=== PATIENT | female | born 1950 | race Caucasian/White ===

== ENCOUNTER 2017-03-20 10:53 | Emergency (ER) | payer OTHER ==
[~2017-03-20] VITALS: Ht 162.6 cm; Wt 87.7 kg
[2017-03-20 11:23] VITALS: BP 151/72; PULSE 83; RESP 16; TEMP 99.3; O2SAT 95
[2017-03-20] MEDS ORDERED: LISI10TA3 PO (12:22)
[2017-03-20] MEDS ORDERED: ASPI-183 PO (12:22)
[2017-03-20] MEDS ORDERED: OMEP40CA2 (12:22)
[2017-03-20] MEDS ORDERED: BUPR100CR PO (12:22)
[2017-03-20] MEDS ORDERED: CO Q60CA (12:22)
[2017-03-20] MEDS ORDERED: GABA400C5 PO (12:22)
[2017-03-20] MEDS ORDERED: CYCL10TA PO (12:53)
--- NOTE | 2017-03-20 12:54 | PD ---
HPI Chief Complaint: Musculoskeletal Complaint Time Seen by Provider: 12:26 Travel History International Travel<30 days: No Contact w/Intl Traveler<30days: No Traveled to known affect area: No History of Present Illness HPI 66-year-old female complains of right lower back pain with radiation to the posterior thigh to the knee and even into the lower leg. Duration about 1 day. She denies any injury. She has had similar symptoms although much less severe previously. She takes aspirin daily which has not helped much at all. She takes gabapentin for chronic cervicalgia. She has no history of diabetes cancer or immunosuppression requiring prednisone/steroids are no modulation otherwise. No fever. No incontinence of stool or urine. She has been constipated on occasion. No weakness of either lower extremity. PFSH Past Medical History High Cholesterol: Yes Diminished Hearing: No GERD: Yes Hypertension: Yes Medical other: Yes (C5-C6 buldging discs) Tetanus Vaccination: Unknown Influenza Vaccination: No ?: Not Past Surgical History Abdominal Surgery: Yes (Ex lap) Cholecystectomy: Yes Other Surgery: Yes (Breast aug) Social History Alcohol Use: No Tobacco Use: No Substance Use: No Allergies-Medications (Allergen,Severity, Reaction): Coded Allergies: Penicillins (Verified Allergy, Severe, Anaphylaxis, 03/20/17) ciprofloxacin (Verified Allergy, Severe, Anaphylaxis, 03/20/17) erythromycin base (Verified Allergy, Severe, Anaphylaxis, 03/20/17) prochlorperazine (Verified Allergy, Severe, Anaphylaxis, 03/20/17) tetracycline (Verified Allergy, Severe, Anaphylaxis, 03/20/17) Sulfa (Sulfonamide Antibiotics) (Verified Allergy, Unknown, Anaphylaxis, ) Reported Meds & Prescriptions Reported Meds & Active Scripts Active Reported Aspirin 325 Mg Tab 325 Mg PO Q6H Co Q 10 (Coenzyme Q10 (Ubidecarenone)) 60 Mg Cap Wellbutrin SR 12 HR (Bupropion HCl) 100 Mg Tab 100 Mg PO Q12HR Omeprazole 40 Mg Cap 40 Mg DAILY Lisinopril 10 Mg Tab 10 Mg PO DAILY Gabapentin 400 Mg Cap 400 Cap PO TID Review of Systems General / Constitutional: No: Fever Musculoskeletal: Positive: Pain Neurologic: No: Weakness Psychiatric: No: Anxiety Physical Exam Narrative GENERAL: 66-year-old female pleasant no acute distress resting left lateral recumbent Vital Signs Date Time Temp Pulse Resp B/P (MAP) Pulse Ox O2 Delivery O2 Flow Rate FiO2 03/20/17 11:23 99.3 83 16 151/72 (98) 95 SKIN: Warm and dry. HEAD: Normocephalic. EYES: No scleral icterus. No injection or drainage. NECK: Supple, trachea midline. No JVD or lymphadenopathy. CARDIOVASCULAR: Regular rate and rhythm without murmurs, gallops, or rubs. RESPIRATORY: Breath sounds equal bilaterally. No accessory muscle use. GASTROINTESTINAL: Abdomen soft, non-tender, nondistended. MUSCULOSKELETAL: No cyanosis, or edema. Minimal tenderness overlying the right superior iliac crest. NEUROLOGIC: 2+ DTRs bilaterally at the patellar tendons. No ankle clonus. Sensation is normal the bilateral lower extremity. Patient is ambulatory. BACK: Nontender without obvious deformity. Minimal superior iliac crest tenderness on the right side. No focal spinal tenderness. Data Data Last Documented VS Vital Signs Date Time Temp Pulse Resp B/P (MAP) Pulse Ox O2 Delivery O2 Flow Rate FiO2 03/20/17 11:23 99.3 83 16 151/72 (98) 95 Orders Orders Cyclobenzaprine (Flexeril) (03/20/17 13:00) Ed Discharge Order (03/20/17 12:50) [facility] Medical Decision Making Medical Screen Exam Complete: Yes Emergency Medical Condition: Yes Medical Record Reviewed: Yes Differential Diagnosis sciatica, osteomyelitis, osteoarthritis Narrative Course Presentation is consistent with sciatica. She is taking gabapentin and aspirin. We will add Flexeril for a few days. Return precautions discussed. Patient has follow-up with Dr. Laughlin. Diagnosis Primary Impression: Sciatica Qualified Codes: M54.31 - Sciatica, right side Referrals: Carlos Laughlin DO 2 days Med/Other Pt SpecificInfo: Prescription(s) given Scripts Cyclobenzaprine (Flexeril) 10 Mg Tab 10 MG PO TID for Muscle Spasm, #20 TAB 0 Refills Prov: Rasheed Guadarrama MD 03/20/17 Disposition: 01 DISCHARGE HOME Condition: Stable Rasheed Guadarrama MD Mar 20, 2017 12:54
[2017-03-20] MEDS ORDERED: CYCLOBENZAPRINE HCL 10 MG TAB PO ONE (13:00)
== END 2017-03-20 13:19 | disposition home or self-care (01) ==
LOC: PHEFT 10:53
DX: M54.31 Sciatica, right side (principal); E78.00 Pure hypercholesterolemia, unspecified; K21.9 Gastro-esophageal reflux disease without esophagitis; I10 Essential (primary) hypertension; Z79.82 Long term (current) use of aspirin
CPT/HCPCS: 99283